=== PATIENT | female | born 1955 | race Caucasian/White ===

== ENCOUNTER 2021-11-03 14:13 | Outpatient (REF) | payer OTHER, SELFPAY ==
[2021-11-05 04:57] LABS: Lyme Abs Screen <0.90 index
== END 2021-11-03 14:14 | disposition home or self-care (01) ==
LOC: HO.LAB 14:13
PROVIDERS: PCP Registered Nurse; Visit Provider Psychiatry & Neurology Neurology
DX: G51.0 Bell's palsy (principal)
CPT/HCPCS: 36415; 86617; 86618

== ENCOUNTER 2022-11-06 12:23 | Emergency (ER) | payer OTHER, SELFPAY ==
--- NOTE | ~2022-11-06 | CT_ITS ---
CT ORBIT WITH CONTRAST CLINICAL INFORMATION: Orbital cellulitis. COMPARISON: None available. TECHNIQUE: Multidetector CT acquisition of the orbits obtained following the administration of 7 mL of Omnipaque 350 intravenous contrast without complication. This CT examination was performed using dose optimization techniques as appropriate, variously including the following: *Automated exposure control *Adjustment of mA and/or kV according to patient size (this includes techniques or standardized protocols for targeted exams where dose is matched to indication/reason for exam; i.e. extremities or head) *Use of iterative reconstruction technique FINDINGS: There is mild right-sided preseptal cellulitis. No post septal cellulitis. No drainable abscess. No retrobulbar mass lesion. There are a few opacified ethmoid air cells. The remaining imaged paranasal sinuses are clear. Mastoid air cells are clear. TMJs are unremarkable. Leftward deviation of the nasal septum with a leftward directed septal spur. No acute fractures. Possible small 1 to 2 mm aneurysms projecting inferiorly from the left IAN anterior communicating artery junction and involving the right MCA trifurcation that would be better assessed with a MRA of the head. There is multilevel cervical spondylosis. CT/CT orbit BI w IV con IMPRESSION: - There is mild right-sided preseptal cellulitis. No post septal cellulitis. No drainable abscess. - Possible small 1 to 2 mm aneurysms projecting inferiorly from the left IAN anterior communicating artery junction and involving the right MCA trifurcation that would be better assessed with a MRA of the head.
[2022-11-06 12:49] VITALS: BP 156/85; PULSE 87; RESP 16; TEMP 36.9; O2SAT 100; BMI 21.8
--- NOTE | 2022-11-06 12:50 | ED.GENADULT ---
HPI - General Adult General Chief complaint: Eye Problems <YAMILET Henderson - Last Filed: 11/06/22 12:51> Stated complaint: ? [place] Eye Right <YAMILET Henderson - Last Filed: 11/06/22 12:51> Time Seen by Provider: 11/06/22 13:08 <YAMILET Henderson - Last Filed: 11/06/22 12:51> History of Present Illness HPI narrative: patient complains of right eye redness and discomfort, her an she noticed some redness in the eye and around the eyelid, the eye itself does hurt mildly, she has no vision change no yellowish discharge from the eye no photophobia, pain is worse when she looks left and right and moves the eye but it is not severe, she has had no fever and has not been ill, no headache, no numbness weakness or tingling no skin rash <YAMILET Amaya Last Filed: 11/07/22 20:54> Related Data Home medications: Previous Rx's Medication Instructions Recorded amoxicillin 875 mg-potassium 1 tab PO Q12H 7 days #14 tabs 11/06/22 clavulanate 125 mg tablet erythromycin 5 mg/gram (0.5 %) eye 0.5 inch ophthalmic (eye) TID 5 11/06/22 ointment days #3.5 grams <YAMILET Henderson - Last Filed: 11/06/22 12:51> Allergies/adverse reactions: Allergies Allergy/AdvReac Type Severity Reaction Status Date / Time No Known Allergies Allergy Unverified 04/11/20 17:41 [No Known Allergies*] <YAMILET Henderson - Last Filed: 11/06/22 12:51> [facility] Past Medical History Source: nursing notes reviewed <YAMLIET Amaya - Last Filed: 11/07/22 20:54> Social History Social History: Social History Advance Directives: No Advance Directives Information Provided: No <YAMILET Henderson Last Filed: 11/06/22 12:51> Physical Exam ED Vital Signs: Vital Signs - 24 hr 11/06/22 12:49 11/06/22 17:36 Temperature 98.4 F 98.4 F Pulse Rate 87 64 Respiratory Rate 16 16 Blood Pressure 156/85 H 153/77 H Pulse Oximetry 100 98 Oxygen Delivery Method Room Air Room Air BMI result Body Mass Index 21.8 <YAMILET Henderson Last Filed: 11/06/22 12:51> Vital Signs - 24 hr 11/06/22 12:49 11/06/22 17:36 Temperature 98.4 F 98.4 F Pulse Rate 87 64 Respiratory Rate 16 16 Blood Pressure 156/85 H 153/77 H Pulse Oximetry 100 98 Oxygen Delivery Method Room Air Room Air BMI result Body Mass Index 21.8 <YAMILET Amaya Last Filed: 11/07/22 20:54> General appearance comfortable relax no acute distress Eye exam the visual acuity is 2020 bilateral Intra-ocular pressure was measured and in the right eye it was 17 Staining of the right eye did not show any ulcerations or corneal abrasions Extraocular motions were full and intact but there was discomfort with lateral movement of the eyes, discomfort was in the right eye Pupils are equal round reactive to light, there was no photophobia There was no discharge from the eye There was no rash near the eye and no other erythema except the lid Sinuses were nontender Pharynx was clear Neck is supple Respiratory no distress Skin no rashes <YAMILET Amaya Last Filed: 11/07/22 20:54> Course Course Course Narrative: RME performed by Hannah Montes PA-C. Patient is a 67 year old assigned female at presenting to the emergency department with right eye pain. Patient states that she had surgery on both eyes approximately a month ago but the right one continues to give her problems. Patient placed back in the waiting room pending room availability and results. <YAMILET Henderson Last Filed: 11/06/22 12:51> RME performed by Hannah Montes PA-C. Patient is a 67 year old assigned female at presenting to the emergency department with right eye pain. Patient states that she had surgery on both eyes approximately a month ago but the right one continues to give her problems. Patient placed back in the waiting room pending room availability and results. Patient with new onset yesterday of some mild discomfort in the right eye, pain was worse with eye movement As she had pain with eye movements and some tenderness to the eye itself CT scan was done to rule out orbital cellulitis, CT scan only showed evidence of preseptal cellulitis Patient was treated with Augmentin for preseptal cellulitis, her visual acuity was normal, pain was mild and she was discharged from the department <YAMILET Amaya - Last Filed: 11/07/22 20:54> Medications Administered Discontinued Medications Generic Name Dose Route Start Last Admin Trade Name Freq PRN Reason Stop Dose Admin Amoxicillin/Clavulanate Potassium 875 mg 11/06/22 18:09 11/06/22 18:17 Amoxicillin/Potassium Clav 875 Mg Tablet PO 11/06/22 18:10 875 mg ONCE ONE Administration Erythromycin 1 cm 11/06/22 18:09 11/06/22 18:17 Erythromycin Base 0.5% Oph Oin 1 Gm Tube EYE-LEFT 11/06/22 18:10 1 cm ONCE ONE Administration Fluorescein Sodium 1 strip 11/06/22 13:45 11/06/22 13:48 Fluorescein Sodium Strip EYE-LEFT 11/06/22 13:46 1 strip ONCE ONE Administration Iohexol 100 ml 11/06/22 16:50 11/06/22 16:50 Iohexol 350 Mg/Ml 100 Ml Infus..Btl IV 11/06/22 16:51 70 ml ONCE ONE Administration Tetracaine HCl 1 drop 11/06/22 13:45 11/06/22 13:48 Tetracaine Hcl/Pf 0.5% Oph Jolie 4 Ml Drops EYE-LEFT 11/06/22 13:46 1 drop ONCE ONE Administration <YAMILET Henderson - Last Filed: 11/06/22 12:51> Medications Administered Discontinued Medications Generic Name Dose Route Start Last Admin Trade Name Freroula PRN Reason Stop Dose Admin Amoxicillin/Clavulanate Potassium 875 mg 11/06/22 18:09 11/06/22 18:17 Amoxicillin/Potassium Clav 875 Mg Tablet PO 11/06/22 18:10 875 mg ONCE ONE Administration Erythromycin 1 cm 11/06/22 18:09 11/06/22 18:17 Erythromycin Base 0.5% Oph Oin 1 Gm Tube EYE-LEFT 11/06/22 18:10 1 cm ONCE ONE Administration Fluorescein Sodium 1 strip 11/06/22 13:45 11/06/22 13:48 Fluorescein Sodium Strip EYE-LEFT 11/06/22 13:46 1 strip ONCE ONE Administration Iohexol 100 ml 11/06/22 16:50 11/06/22 16:50 Iohexol 350 Mg/Ml 100 Ml Infus..Btl IV 11/06/22 16:51 70 ml ONCE ONE Administration Tetracaine HCl 1 drop 11/06/22 13:45 11/06/22 13:48 Tetracaine Hcl/Pf 0.5% Oph Jolie 4 Ml Drops EYE-LEFT 11/06/22 13:46 1 drop ONCE ONE Administration <YAMILET Amaya - Last Filed: 11/07/22 20:54> Medical Decision Making Lab Data Result Diagrams: 11/06/22 15:56 11/06/22 15:56 <YAMILET Henderson - Last Filed: 11/06/22 12:51> Labs: Lab Results 11/06/22 11/06/22 Range/Units 15:56 15:56 WBC 7.9 (4.8-10.8) X10*3/uL RBC 5.30 (4.20-5.50) X10*6/uL Hgb 14.2 (12.0-16.0) g/dl Hct 44.2 (37.0-47.0) % MCV 83.4 (80.0-98.0) fL MCH 26.8 L (27.0-33.0) pg MCHC 32.1 (31.0-35.0) g/dl RDW 15.0 (11.0-16.0) % Plt Count 194 (160-400) X10*3/uL MPV 12.0 (9.4-12.3) fL Immature Gran % (Auto) 0.1 (0.0-0.4) % Neut % (Auto) 54.5 (45-73) % Lymph % (Auto) 33.8 (20-40) % Brantley % (Auto) 7.7 (2-11) % Eos % (Auto) 2.3 (0-4) % Baso % (Auto) 1.6 (0-2) % Lymph # (Auto) 2.7 (1.2-4.9) X10*3/uL Br[place]ley # (Auto) 0.6 (0.1-1.2) X10*3/uL Eos # (Auto) 0.2 (0.0-0.4) X10*3/uL Baso # (Auto) 0.1 (0.0-0.2) X10*3/uL Abs Immat Gran (auto) 0.01 (0.00-0.03) X10*3/uL Absolute Neuts (auto) 4.3 (2.0-8.3) x10*3/uL Absolute Nucleated RBC 0.000 (0.0-0.012) X10*3/uL Nucleated RBC % (auto) 0.0 (0.0-0.2) /100WBC Sodium 144 (135-145) mmol/L Potassium 4.3 (3.3-5.1) mmol/L Chloride 107 (96-108) mmol/L Carbon Dioxide 28 (22-29) mmol/L Anion Gap 13 (12-20) BUN 11 (9-16) mg/dL Creatinine 1.12 (0.5-1.4) mg/dL Estim Creat Clear Calc 33.2 Estimated GFR 49 Random Glucose 84 (60-115) mg/dL Calcium 9.2 (8.4-10.2) mg/dL <YAMILET Henderson - Last Filed: 11/06/22 12:51> Lab Results 11/06/22 11/06/22 Range/Units 15:56 15:56 WBC 7.9 (4.8-10.8) X10*3/uL RBC 5.30 (4.20-5.50) X10*6/uL Hgb 14.2 (12.0-16.0) g/dl Hct 44.2 (37.0-47.0) % MCV 83.4 (80.0-98.0) fL MCH 26.8 L (27.0-33.0) pg MCHC 32.1 (31.0-35.0) g/dl RDW 15.0 (11.0-16.0) % Plt Count 194 (160-400) X10*3/uL MPV 12.0 (9.4-12.3) fL Immature Gran % (Auto) 0.1 (0.0-0.4) % Neut % (Auto) 54.5 (45-73) % Lymph % (Auto) 33.8 (20-40) % Brantley % (Auto) 7.7 (2-11) % Eos % (Auto) 2.3 (0-4) % Baso % (Auto) 1.6 (0-2) % Lymph # (Auto) 2.7 (1.2-4.9) X10*3/uL Br[place]ley # (Auto) 0.6 (0.1-1.2) X10*3/uL Eos # (Auto) 0.2 (0.0-0.4) X10*3/uL Baso # (Auto) 0.1 (0.0-0.2) X10*3/uL Abs Immat Gran (auto) 0.01 (0.00-0.03) X10*3/uL Absolute Neuts (auto) 4.3 (2.0-8.3) x10*3/uL Absolute Nucleated RBC 0.000 (0.0-0.012) X10*3/uL Nucleated RBC % (auto) 0.0 (0.0-0.2) /100WBC Sodium 144 (135-145) mmol/L Potassium 4.3 (3.3-5.1) mmol/L Chloride 107 (96-108) mmol/L Carbon Dioxide 28 (22-29) mmol/L Anion Gap 13 (12-20) BUN 11 (9-16) mg/dL Creatinine 1.12 (0.5-1.4) mg/dL Estim Creat Clear Calc 33.2 Estimated GFR 49 Random Glucose 84 (60-115) mg/dL Calcium 9.2 (8.4-10.2) mg/dL <YAMILET Amaya - Last Filed: 11/07/22 20:54> Discharge Plan Discharge Clinical Impression: Periorbital cellulitis <YAMILET Henderson - Last Filed: 11/06/22 12:51> Patient Disposition: Home, Self-Care <YAMILET Henderson - Last Filed: 11/06/22 12:51> Additional Instructions: imaging today showed an infection of the skin around the eye and we are treating with Augmentin antibiotic and erythromycin ointment for the eye Return immediately to the emergency room if you develop fever, worsening eye pain, vision loss, any worse condition or any concerns For any mild symptoms follow with eye doctor or primary doctor next week <YAMILET Henderson - Last Filed: 11/06/22 12:51> Prescriptions: New amoxicillin-pot clavulanate 875-125 mg tablet 1 tab PO Q12H 7 Days Qty: 14 0RF erythromycin 5 mg/gram (0.5 %) ointment 0.5 inch ophthalmic (eye) TID 5 Days Qty: 3.5 0RF <YAMILET Henderson - Last Filed: 11/06/22 12:51> Referrals: Lorenzo Barnes [Physician] - <YAMILET Henderson - Last Filed: 11/06/22 12:51> Interventions: ED Discharge Assessment Last Done: 11/06/22 18:46 <YAMILET Henderson - Last Filed: 11/06/22 12:51> Discharge Date/Time: 11/06/22 18:47 <YAMILET Henderson - Last Filed: 11/06/22 12:51>
[2022-11-06] MEDS: Tetracaine HCl/PF 0.5% Oph Sol 4 ML DROPS 1 DROP EYE-LEFT (13:48)
[2022-11-06] MEDS: Fluorescein Sodium STRIP 1 STRIP EYE-LEFT (13:48)
[2022-11-06 16:17] LABS: MANUAL DIFF FLAG NO
[2022-11-06 16:20] LABS: Basophils Absolute Auto 0.1 X10*3/uL (0.0-0.2); Basophils Percent Auto 1.6 % (0-2); Eosinophils Absolute Auto 0.2 X10*3/uL (0.0-0.4); Eosinophils Percent Auto 2.3 % (0-4); Hematocrit 44.2 % (37.0-47.0); Hemoglobin 14.2 g/dl (12.0-16.0); Imm Gran Abs Auto 0.01 X10*3/uL (0.00-0.03); Imm Gran Pct Auto 0.1 % (0.0-0.4); Lymphocytes Absolute Auto 2.7 X10*3/uL (1.2-4.9); Lymphocytes Percent Auto 33.8 % (20-40); Mean Corpuscular HGB Conc 32.1 g/dl (31.0-35.0); Mean Corpuscular Hemoglobin 26.8 pg (27.0-33.0); Mean Corpuscular Volume 83.4 fL (80.0-98.0); Monocytes Absolute Auto 0.6 X10*3/uL (0.1-1.2); Monocytes Percent Auto 7.7 % (2-11); Neutrophils Absolute Auto 4.3 x10*3/uL (2.0-8.3); Neutrophils Percent Auto 54.5 % (45-73); Platelet Count 194 X10*3/uL (160-400); White Blood Count 7.9 X10*3/uL (4.8-10.8)
[2022-11-06 16:36] LABS: Anion Gap 13 (12-20); Blood Urea Nitrogen 11 mg/dL (9-16); Calcium 9.2 mg/dL (8.4-10.2); Carbon Dioxide 28 mmol/L (22-29); Chloride 107 mmol/L (96-108); Creatinine Clr Calc Pharmacy 33.2; Estimated Glomerular Filt Rate 49; Glucose Random 84 mg/dL (60-115); Potassium 4.3 mmol/L (3.3-5.1); Sodium 144 mmol/L (135-145)
[2022-11-06] MEDS: iohexoL 350 MG/ML 100 ML INFUS..BTL IV (16:50)
[2022-11-06 17:36] VITALS: BP 153/77; PULSE 64; RESP 16; TEMP 36.9; O2SAT 98
[2022-11-06] MEDS: Erythromycin Base 0.5% Oph Oin 1 GM TUBE 1 CM EYE-LEFT (18:17)
[2022-11-06] MEDS: Amoxicillin/Potassium Clav 875 MG TABLET PO (18:17)
== END 2022-11-06 18:47 | disposition home or self-care (01) ==
PROVIDERS: Physician Assistant Medical; Emergency Provider Emergency Medicine; PCP Registered Nurse
DX: L03.213 Periorbital cellulitis (principal); H57.11 Ocular pain, right eye
CPT/HCPCS: 36415; 70481; 80048; 85025; 99283; 99284; Q9967